=== PATIENT | female | born 1990 | race Caucasian/White ===

== ENCOUNTER 2020-09-16 15:22 | Emergency (ER) | payer OTHER ==
[~2020-09-16] VITALS: Ht 144.8 cm; Wt 86.2 kg
[2020-09-16 15:35] VITALS: Ht 144.8 cm; Wt 86.2 kg
[2020-09-16 18:38] VITALS: BP 106/78
== END 2020-09-16 18:38 | disposition home or self-care (01) ==
LOC: ED 15:22
DX: S39.012A Strain of muscle, fascia and tendon of lower back, initial encounter (principal); M43.16 Spondylolisthesis, lumbar region; E66.01 Morbid (severe) obesity due to excess calories; W18.09XA Striking against other object with subsequent fall, initial encounter; Y93.89 Activity, other specified; Y92.89 Other specified places as the place of occurrence of the external cause; Y99.8 Other external cause status
CPT/HCPCS: J1100; J1885